=== PATIENT | female | born 1985 | race Caucasian/White ===

== ENCOUNTER 2019-03-18 09:29 | Outpatient (CLI) | payer MEDICAID ==
[~2019-03-18] VITALS: Ht 160 cm; Wt 86.8 kg
[~2019-03-18 09:29] MED LIST: NIFE10CA PO; PREN-99 PO
[2019-03-18 09:35] VITALS: Ht 160 cm; Wt 86.8 kg
[2019-03-18] MEDS ORDERED: BETAMET NA PHOS/AC (6 MG/ML) 2 ML INJ SYG IM ONE (10:00)
[2019-03-18] MEDS ORDERED: LACTATED RINGER'S 1,000 ML IV ONE (10:30)
== END 2019-03-18 11:19 | disposition home or self-care (01) ==
LOC: L-D 09:29 → OBT 09:29
PROVIDERS: ATTEND Obstetrics & Gynecology
DX: O62.9 Abnormality of forces of labor, unspecified (principal); Z3A.34 34 weeks gestation of pregnancy
CPT/HCPCS: J0702; J7120; Z7500; G0463